=== PATIENT | male | born 1980 | race Two or more races ===

== ENCOUNTER 2020-06-10 12:26 | Emergency (ER) | payer BC ==
--- NOTE | 2020-06-10 13:34 | EDM.PDOC ---
ED HPI GENERAL MEDICAL PROBLEM - General Chief Complaint: Respiratory Problem Stated Complaint: TESTED POSITIVE FOR COVID YESTERDAY Time Seen by Provider: 06/10/20 12:40 Source of Information: Reports: Patient History Limitations: Reports: No Limitations - History of Present Illness INITIAL COMMENTS - FREE TEXT/NARRATIVE: Patient is a 39-year-old male who presents to the emergency department to be evaluated after positive COVID test yesterday. Patient states on Tuesday which was approximately 2 days ago, he developed fatigue in the morning. States he was outside washing his vehicle and almost had to stop because he just felt wiped out. Later that evening he developed a fever of 100.4. He took some Tylenol and slept well throughout the night. The next morning he awoke and did have a mild cough as well as continued fatigue. He was tested with a rapid COVID test in [place] which was returned positive. He has had no shortness of breath, however does have slight chest discomfort with coughing. Denies any chest pain while at rest. Denies any nausea, vomiting, or diarrhea. He has no chronic health conditions. States he came to the ER because his wanted him to get checked out. He states he was just contacted by the [facility] 1 hour ago and they gave him education I will be following up with him. Treatments [employer]: Reports: Acetaminophen Other Treatments [employer]: aprox 10am - Related Data Allergies Allergy/AdvReac Type Severity Reaction Status Date / Time No Known Allergies Allergy Verified 06/10/20 12:40 Home Meds: Home Meds . [No Known Home Meds] 06/10/20 [History] Past Medical History - Past Health History Medical/Surgical History: Denies Medical/Surgical History - Infectious Disease History Infectious Disease History: Reports: Other (See Below) Social & Family History - Tobacco Use Smoking Status *Q: Never Smoker - Caffeine Use Caffeine Use: Reports: None - Recreational Drug Use Recreational Drug Use: No ED ROS GENERAL - Review of Systems Review Of Systems: See Below Constitutional: Reports: Fever, Fatigue, Other (Generalized body aches). Denies: Chills, Weakness HEENT: Reports: No Symptoms. Denies: Throat Pain, Vertigo Respiratory: Reports: Pleuritic Chest Pain, Cough. Denies: Shortness of Breath Cardiovascular: Reports: No Symptoms Endocrine: Reports: No Symptoms GI/Abdominal: Reports: No Symptoms. Denies: Abdominal Pain, Nausea, Vomiting : Reports: No Symptoms Musculoskeletal: Reports: No Symptoms Neurological: Reports: Headache. Denies: Confusion, Dizziness Psychiatric: Reports: No Symptoms Hematologic/Lymphatic: Reports: No Symptoms Immunologic: Reports: No Symptoms ED EXAM, GENERAL - Physical Exam Exam: See Below General Appearance: Alert, WD/WN, No Apparent Distress Respiratory/Chest: No Respiratory Distress, Lungs Clear, Normal Breath Sounds, No Accessory Muscle Use, Chest Non-Tender Cardiovascular: Normal Peripheral Pulses, Regular Rate, Rhythm, No Edema, No Gallop, No JVD, No Murmur, No Rub Neurological: Alert, Oriented, CN II-XII Intact, Normal Cognition, Normal Gait, Normal Reflexes, No Motor/Sensory Deficits Psychiatric: Normal Affect, Normal Mood Skin Exam: Warm, Dry, Intact, Normal Color, No Rash Course - Vital Signs Last Recorded V/S: Last Vital Signs Temp 97.5 F 06/10/20 12:32 Pulse 63 06/10/20 13:23 Resp 16 06/10/20 12:32 BP 131/92 H 06/10/20 13:23 Pulse Ox 96 06/10/20 13:23 - Orders/Labs/Meds Orders: Active Orders 24 hr Category Date Time Status Chest 1V Frontal [CR] Stat Exams 06/10/20 12:41 Taken - Re-Assessments/Exams Free Text/Narrative Re-Assessment/Exam: Chest x-ray was completed and shows no evidence of pneumonia. Oxygen saturations have been 96 to 100% on room air. Vital signs are normal. Patient is doing well. Discussed that he may use [id number] Robitussin-DM as needed for cough. Recommend that he go home and isolate himself. He states he has his own bedroom and personal bathroom and will he will be isolated from his family and all her contacts. Discussed with him return precautions including respiratory distress or other symptoms of concern. He verbalized understanding. Discharge instructions as documented. Departure - Departure Time of Disposition: 13:32 Disposition: Home, Self-Care 01 Condition: Good Clinical Impression: COVID-19 - Discharge Information *PRESCRIPTION DRUG MONITORING PROGRAM REVIEWED*: No *COPY OF PRESCRIPTION DRUG MONITORING REPORT IN PATIENT CLARENCE: No Instructions: COVID-19, COVID-19 Frequently Asked Questions Additional Instructions: You were seen in the emergency department today for evaluation after having received a positive COVID-19 test yesterday. Chest x-ray was done and was found to be normal. Your oxygen saturations have been 96 to 100% on room air which is good. Vital signs are otherwise normal. Recommend that she go home and isolate. Sure you are taking an adequate amount of fluid. Rest. You may use [id number] Tylenol as needed for fever or discomfort. You may also use [id number] Robitussin-DM as needed for cough. Follow the recommendation of the [facility]. Return to the ER if you should experience any signs of respiratory distress or other significant symptoms of concern. Sepsis Event Note (ED) - Evaluation Sepsis Screening Result: No Definite Risk - Focused Exam Vital Signs: Vital Signs Temp Pulse Resp BP Pulse Ox 06/10/20 13:23 63 131/92 H 96 06/10/20 12:32 97.5 F 99 16 146/102 H 99 - My Orders Last 24 Hours: My Active Orders 06/10/20 12:41 Chest 1V Frontal [CR] Stat - Assessment/Plan Last 24 Hours: My Active Orders 06/10/20 12:41 Chest 1V Frontal [CR] Stat
--- NOTE | 2020-06-10 16:35 | CR ---
Chest: Portable view of the chest was obtained. Comparison: No prior chest imaging. Heart size and mediastinum are normal. Slight increased density within the left lung base is seen most likely due to atelectasis. Lungs otherwise are clear. Bony structures are unremarkable. Impression: 1. Mild left basilar atelectasis. 2. Nothing acute is otherwise seen. Diagnostic code #2 This report was dictated in MDT
== END 2020-06-10 13:50 | disposition home or self-care (01) ==
LOC: JD.ED 12:26
DX: U07.1 COVID-19 (principal)
CPT/HCPCS: 71045; 71045-26; 99282; 99283-25